=== PATIENT | female | born 1945 | race Caucasian/White ===

== ENCOUNTER 2020-07-31 11:21 | Day surgery (SDC) | payer MEDICARE, SELFPAY ==
[2020-07-31] VITALS (10 sets, daily range): BP systolic 134–159; BP diastolic 45–87; PULSE 76–88; RESP 14–16; TEMP 36.6–37.1; O2SAT 96–100; BMI 29.5
[2020-07-31] MEDS: Lactated Ringers 1,000 ML 75 ML IV (13:10)
--- NOTE | 2020-07-31 14:00 | PCM.DC.ORTHO ---
Discharge Diet: Light diet - advance as tolerated Discharge Activity: May Not Drive, May Not Shower, Use Walker, Use Crutches Weight Bearing Status: No weight bearing Keep extremity elevated above heart level: Left Leg Additional Activity Instructions:: 1. Keep dressing to left leg clean, dry, intact. Do not get dressing wet. Do not remove dressing. If get dressing wet, call office for further instructions. 2. Ice around left knee 30 minutes every hour while awake as needed for pain. 3. Elevate left foot above level of heart as often as possible until further instructed. When elevating, place pillows underneath left calf. Make sure left heel is hanging off so no pressure is placed on left heel. 4. No walking or standing on the left foot. Do not place any weight on left foot. Use walker/crutches/wheelchair/knee scooter for assistance. 5. Continue taking doxycycline (antibiotic) twice a day as instructed. 6. Begin taking aspirin tomorrow, August 01, 2020 as instructed. 7. Begin taking [place] (pain medication) today, July 31, 2020 as needed. You can supplement with extra strength Tylenol (acetaminophen). [place] does contain Tylenol (Acetaminophen) in it. Do not take more than 3000 mg of Tylenol (Acetaminophen) in a 24-hour period. 8. Follow-up with Dr. Cordova in [place] office as previously instructed and scheduled. 9. Call office with any questions, concerns, increase in pain. Call your doctor if your incision/area has: Continuous Slow Oozing, Sudden Increased Bleeding, Increased Pain/ Swelling Call your doctor if you observe: Fever of 101 or Higher, Coldness, Increased Pain, Shortness of breath, Chest pain, Increased palpitations (irregular heartbeat), Calf discomfort, Uncontrolled pain Cleanse incision/area with: Keep Dressing Clean & Dry Allergies/Adverse Reactions: Allergies latex Allergy (Verified 07/30/20 15:32) Swelling Sulfa (Sulfonamide Antibiotics) Allergy (Verified 07/30/20 15:32) PT UNSURE OF REACTION Medications to take at Discharge Acetaminophen [Tylenol] 325 mg PO Q6H PRN PRN 07/30/20 Doxycycline Hyclate 100 mg PO BID 07/30/20 Ibuprofen [Advil] 200 mg PO Q6H 07/30/20 Primary Care Physician: Lois Paul MD [Primary Care Provider] - Test Results: Test results from this visit will be discussed in further detail at your follow-up appointment, if applicable. Please Follow Up With: Eric Cordova DPM When: in 1 week in [place] office as previously scheduled. Proposed Discharge Date: 07/31/20
--- NOTE | 2020-07-31 14:05 | PCM.OPRPT ---
Problem List (1) Dislocation of left ankle joint Status: Acute Qualifiers: Encounter type: initial encounter Qualified Code(s): S93.05XA - Dislocation of left ankle joint, initial encounter (2) Fracture of ankle, trimalleolar, left, closed Status: Acute Qualifiers: Encounter type: initial encounter Qualified Code(s): S82.852A - Displaced trimalleolar fracture of left lower leg, initial encounter for closed fracture Report of Operation Date of Procedure: 07/31/20 Pre-Operative Diagnosis: 1. Left ankle trimalleolar fracture, displaced, closed. 2. A left ankle joint dislocation Post-Operative Diagnosis: Same as preoperative Surgery/Procedure Performed:: 1. Closed reduction of left ankle trimalleolar fracture. 2. Application of external fixator, left foot, ankle, leg Description of Surgical Findings:: Consistent with diagnosis. Reduction of deformity achieved and held with external fixation. Type of Anesthesia:: Spinal/Supplemental - With a popliteal and saphenous block given to the left lower extremity Anesthesiologist: Avtar Kimbrough Special Medications: 2 grams of ancef given pre-operatively Specimen's removed: None Drains: None Description of Procedure: Pathology: None Anesthesia: Spinal with a popliteal and saphenous block of the left lower extremity Hemostasis: Anatomic dissection Estimated blood loss: Materials: 1. [place] Martini delta frame external fixator with associated half pins x5. 2. Size 5 150mm Half pins x 2 3. Size 5 180 mm Half pins x 2 4. Hybrid 4/5 half pin Injectables: None Complications: None Condition: Stable Indications: Patient is a 74-year-old female with no reported past medical history who presented to my office yesterday, July 30, 2020 with chief complaint of pain in her left ankle. After verbal questioning, patient states that the injury to her left ankle occurred on July 26, 2020 while she was at home. Patient was out in her yard and the patient slipped on wet grass. She states that she felt a pop and snap in her left ankle during the incident. She noticed that her foot was turning outwards, and she popped her foot back into place herself. She attempted to weight-bear, but noticed shifting of her left foot again. Patient was then brought to the [facility] emergency department for further evaluation. At that time, x-rays were taken, revealing a left ankle trimalleolar fracture with a left ankle joint dislocation. A closed reduction was performed and patient was placed in a posterior splint. She was instructed to remain nonweightbearing. She then presented to my office yesterday for further evaluation. At that time, x-rays were reviewed with the patient, revealing a left ankle joint dislocation that was reduced when compared to prereduction x-rays along with a left ankle joint trimalleolar fracture, which was reduced when compared to prereduction x-rays. After reviewing the patient's skin, significant fracture blisters were present on the medial and lateral aspects of the left ankle. Significant swelling was noted as well. At that time, I discussed with the patient the nature and severity of her injury. I discussed with her that she does have a left ankle trimalleolar fracture along with dislocation, and I discussed these terms in detail. I discussed with her that there are fracture blisters present. I discussed with her conservative and surgical intervention. Conservative therapy would include serial casting along with a period of nonweightbearing with transitioning to a cam boot. I discussed surgical intervention with the patient. Initial surgical intervention would include a closed reduction of the left ankle joint with application of external fixator frame. The reasoning for this would be the evidence of her fracture blisters that are present. I discussed with the patient that open reduction with internal fixation is not advised until the fracture blisters show evidence of healing. The external fixator would hold her ankle in place until a definitive surgical intervention can be performed. I discussed with her that a second surgery would be necessary to remove the external fixator and perform internal fixation. I discussed what the external fixator looks like and showed her images of this. I discussed the risks and benefits of both conservative and surgical intervention. Risks of surgical intervention include but not limited to delayed or nonhealing wounds, delayed or nonhealing bone, DVT, infection, decreased function of limb, continued pain, damage to surrounding structures, loss of limb, loss of life. All the patient's questions were answered to her satisfaction and all of her concerns were addressed. No guarantees were made as to the outcome of the procedure. Patient understood all aspects of the procedure. Due to the fracture blisters that were present in her ankle joint injury, I recommended initial surgical intervention with closed reduction of the left ankle joint along with application of external fixator. Patient was agreeable to this and consent was then signed by the patient. Surgical intervention was planned for today, July 31, 2020. I discussed with the patient I would recommend that she stay as an inpatient in the hospital to be placed in subacute rehab. Patient was not agreeable to this, stating that she does have enough support at home to help her ambulate. I discussed with her that this could help her with her pain control. Patient is refusing to be admitted as an inpatient, and would like to go home after the surgery. Operative report: before the patient was brought to the operating room, the risks of surgical intervention include but not limited to delayed or nonhealing wounds, delayed or nonhealing bone, DVT, infection, decreased function of limb, continued pain, damage to surrounding structures, loss of limb, loss of life. All the patient questions were answered to her satisfaction and all of her concerns were addressed. No guarantees were made as to the outcome of the procedure. Patient understood all aspects of the procedure. Patient was agreeable to proceed with a left ankle joint closed reduction along with application of external fixator. I discussed with her once again that would recommend that she does stay at least 1 night after the surgery for pain control. I also do recommend subacute rehab placement. Patient is refusing admission and subacute rehab at this time, stating that she has enough support at home and would like to go home after the surgery. Patient was then brought to the operating room and placed on the operating table in supine position. At that time, spinal anesthesia was achieved along with IV sedation. Preoperative antibiotics were given. Anesthesia took control of the airway and IV access. Care was taken make sure that all pressure points were adequately padded. The left lower extremity was then elevated with blankets. A bump was placed on the ipsilateral hip. Next, the left foot, ankle, leg were then scrubbed, prepped, draped in the usual sterile manner. Attention was then directed to the left tibia. At this time, radiographic evaluation was used to determine the level of the tibia and fibula fractures. These were then marked on the patient. Next, the proximal tibia was palpated and marked on the patient. This was proximal to the fracture line. At this time, a stab incision was made at the level of the proximal tibia in the midshaft of the tibial bone. Blunt dissection was continued down deep to the level of the tibia, which was where the periosteum was bluntly dissected off. At this time, the Gayla half pin was placed from anterior to posterior into the tibia. Care was taken make sure this was bicortical. This was confirmed upon radiographic evaluation. Once adequate positioning of this pin was performed, a second pin was placed proximal to this. This was inserted in standard fixation and approximately 2 cm proximal to the first pin. Radiograph evaluation was performed to make sure this pin was bicortical as well. The [place] 10 hole pin clamp was placed, and upon tightening of the pin clamp, bending of the pins was noted. Was determined that the proximal pin would be moved further proximally to adequately aligned and the pin clamp. This half pin was then placed 4 cm proximal to the first pin. A stab incision was made at this level and this was inserted bicortically. Multiple radiographic views placed to make sure this was bicortical. The 10 hole clamp was placed on the 2 pins, and no bending of the pins was noted. The clamp was then removed. The skin for the site where the half pin was removed was reapproximated coapted utilizing size 3-0 nylon in a horizontal mattress fashion. Once adequate positioning of the pin was performed, attention was then directed to the medial aspect of the left calcaneus. Radiograph evaluation was performed to determine the level of where the medial calcaneal pin would be inserted. Once this was determined, a stab incision was made at the medial calcaneus. Blunt dissection was continued down deep to the level of calcaneus, where the periosteum was bluntly dissected off. Next, the half pin was placed from medial to lateral in the calcaneus with care taken make sure this was bicortical. This was confirmed on radiographic evaluation. Next, attention was then directed to the lateral aspect of the left calcaneus. Radiograph evaluation was used to determine where this half pin would be placed. Care was taken make sure that this pin was not going to interfere with the medial calcaneal pain. Once adequate positioning was had, stab incision was made at this level were blunt dissection was continued down deep to the level of the calcaneus. The periosteum was bluntly dissected off. At this time, the half pin was placed from lateral to medial with care taken to make sure that this was bicortical. Multiple radiographic views were performed to make sure that adequate positioning of these pins was had. These were bicortical as well. Attention then directed to the dorsomedial aspect of the right foot in the area of the medial cuneiform. Radiograph evaluation was performed to determine the level of where the medial cuneiform pin will be placed. Once this was determined, a stab incision was made at the level of the medial aspect of the medial cuneiform. The cuneiform half pin was inserted from medial to lateral into the intermediate and lateral cuneiforms. Once adequate positioning was had, radiograph evaluation was then performed. Adequate positioning was obtained of this medial cuneiform pin. Next, radiograph evaluation was performed on the tibial pins, calcaneal pins, medial cuneiform pin once again. These were all in adequate position and all were contained in multiple cortices. Next, the 10 hole pin clamp was placed on top of the 2 tibial pins. At this time, rods were placed with the couplings to the lateral portion of the tibia to the lateral calcaneus, medial portion of the tibia to the medial calcaneus, and lateral alexx to the medial cuneiform pin. The proximal pins, couplings, and rods were then tightened. At this time, live radiograph evaluation was used to perform the closed reduction. Once adequate positioning was obtained of the trimalleolar ankle fracture and the talus was underneath the tibia, all pins, rods, couplings were tightened. Once all were tightened, radiographic evaluation was performed. The tibia and fibula were noted to be reduced from preoperative assessment. The ankle joint mortise was noted to be intact. The tibia and fibula were noted to be out the length. Reduction was had from preoperative assessment. Care was taken to make sure that all pins were tightened. Each pin site was then dressed with Xeroform and the fracture blister sites along with the evacuated pin hole site were dressed with betadine soaked gauze. The left foot/ankle/leg were then dressed with a dry sterile dressing consisting of 4 x 4 gauze, and Kerlix. The left foot, ankle, leg were then wrapped with an Fuentes bandage. Neurovascular status was assessed at the end of application and deemed intact to the left lower extremity. The patient tolerated the anesthesia the procedure well and was transported to the PACU with vital signs stable and neurovascular status intact to the left lower extremity. After period of postoperative monitoring, patient will be discharged home with written and oral instructions for wound care and follow up. - Complications None - Admit VTE Documentation VTE Present on Admission: No - Postoperative DVT prophylaxis given with aspirin 325 mg p.o. once a day VTE Mechan Device Prophylaxis: SCD's VTE Pharm Prophylaxis ordered?: Yes
[2020-07-31] MEDS: Cefazolin 2 GM in 0.9% Normal Saline 100 ML IV (14:42)
--- NOTE | 2020-07-31 14:45 | RAD_ITS ---
STUDY: X-RAY - LEFT ANKLE REASON FOR EXAM: Female, 74 years old. ] Reduction of a trimalleolar fracture with external fixator. TECHNIQUE: Fluoroscopic guidance was provided in the operating room during the external fixation of the trimalleolar ankle fracture. Surgery images of the ankle were performed. COMPARISON: None. FINDINGS: Endoscopic guidance was provided the OR. The report is for documentation purposes. There is no radiologic evaluation of the images. 289.1 seconds of fluoroscopy were utilized. The dosage is 7.07 mCGy. Please refer to the operative report for further details. RAD/Ankle min 3 Views IMPRESSION: Fluoroscopic guidance provided in the OR during the external fixation of an ankle fracture. Electronically Signed: Rupert Carcamo DO at 20:20 EDT Tel [phone], Service support ,
--- NOTE | 2020-07-31 16:25 | RAD_ITS ---
STUDY: X-RAY - LEFT TIBIA AND FIBULA REASON FOR EXAM: Female, 74 years old. Postop, status post closed reduction of an ankle fracture with external fixation. TECHNIQUE: AP and lateral view(s) of the tibia and fibula were obtained. COMPARISON: Ankle, 07/31/2020. FINDINGS: There are 2 metal pins extending through the mid tibial shaft. External fixator is seen about the lower ankle and foot. There are minimally displaced fractures of the posterior malleolus. There is a fracture of the distal fibula. There is a nondisplaced fracture of the medial malleolus. The ankle and knee appear intact. The soft tissue structures are unremarkable. RAD/Tibia & Fibula 2 Views IMPRESSION: Post external fixation of a left trimalleolar ankle fracture. Electronically Signed: Rupert Carcamo DO at 20:45 EDT Tel [phone], Service support ,
--- NOTE | 2020-07-31 16:25 | RAD_ITS ---
STUDY: X-RAY - LEFT FOOT CLINICAL: Female, 74 years old. Postop, status post closed reduction of an ankle fracture with external fixation. TECHNIQUE: 3 view(s) of the foot. COMPARISON: Left ankle, 07/31/2020 FINDINGS: Visualization the osseous structures for limited due to overlying external fixator. There are 2 pins transfixing the calcaneus and another pin extending through the cuneiforms. There is no obvious osseous fracture. An seen is a fracture of the ankle. Normal talus, calcaneus, and tarsal bones. Normal visualized subtalar, talonavicular, calcaneocuboid, tarsal and tarsometatarsal articulations. Normal metatarsi. Normal metatarsophalangeal joint of the great toe. Normal tibial and fibular sesamoid bones. Normal interphalangeal joint of the great toe. Normal phalanges of the great toe. Normal second through fifth metatarsophalangeal joints. Normal interphalangeal joints and phalanges of the lesser toes. The soft tissue structures are unremarkable. RAD/Foot min 3 Views IMPRESSION: Status post external fixation of an ankle fracture. There is no obvious fracture or dislocation of left foot. Electronically Signed: Rupert Carcamo DO at 20:44 EDT Tel [phone], Service support ,
--- NOTE | 2020-07-31 16:45 | RAD_ITS ---
STUDY: X-RAY - LEFT ANKLE REASON FOR EXAM: Female, 74 years old. Postop, status post closed reduction of left ankle fracture with external fixation. TECHNIQUE: 3 view(s) of the ankle. COMPARISON: None. FINDINGS: Is a minimally displaced posterior malleolar fracture. Mildly displaced fracture of the distal fibular metaphysis. The medial malleolus appears unremarkable. Normal tibiotalar articulation and ankle mortise. Normal visualized talus and calcaneus. The visualized subtalar, talonavicular, calcaneocuboid and tarsal articulations are normal. There is evidence of an external fixator with multiple rods extending into the calcaneus. RAD/Ankle min 3 Views IMPRESSION: External fixation of left ankle fracture. Fracture fragments are in grossly normal alignment. Electronically Signed: Rupert Carcamo DO at 20:32 EDT Tel [phone], Service support ,
== END 2020-07-31 19:00 | disposition home or self-care (01) ==
LOC: SDC 11:28 → AC 11:30
PROVIDERS: PCP Internal Medicine; Referring Provider Podiatrist Foot & Ankle Surgery; Visit Provider Podiatrist Foot & Ankle Surgery
DX: S82.852A Displaced trimalleolar fracture of left lower leg, initial encounter for closed fracture (principal); E66.3 Overweight; Z68.29 Body mass index [BMI] 29.0-29.9, adult; S93.05XA Dislocation of left ankle joint, initial encounter; W01.0XXA Fall on same level from slipping, tripping and stumbling without subsequent striking against object, initial encounter; Y93.89 Activity, other specified; Y92.007 Garden or yard of unspecified non-institutional (private) residence as the place of occurrence of the external cause; Y99.9 Unspecified external cause status
CPT/HCPCS: 01462; 20694; 27822; 73590; 73610; 73630; 76000; 87426; C1713; J7120; J2405

== ENCOUNTER 2020-08-22 05:42 | Day surgery (SDC) | payer MEDICARE, SELFPAY ==
[2020-07-31 13:02] VITALS: BMI 29.5
[2020-08-22 06:25] VITALS: BP 135/69; PULSE 69; RESP 18; TEMP 37.1; O2SAT 98; BMI 29.0
[2020-08-22] MEDS: Lactated Ringers 1,000 ML 100 ML IV (06:35)
[2020-08-22] MEDS: Cefazolin 2 GM in 0.9% Normal Saline 100 ML IV (07:26)
--- NOTE | 2020-08-22 07:45 | RAD_ITS ---
STUDY: X-RAY - LEFT ANKLE REASON FOR EXAM: Female, 74 years old. Removed external fixation, ORIF trimalleolar fx TECHNIQUE: 3 view(s) of the ankle. COMPARISON: None. FINDINGS: Intraoperative imaging provided for removal of the external fixator device and ORIF of the distal fibula and medial malleolus. There is good alignment. RAD/Ankle min 3 Views IMPRESSION: Intraoperative imaging provided for removal of the external fixator device and ORIF of the distal fibula and medial malleolar fractures. Electronically Signed: Bryan Fernandez, at 12:57 EST , Service support ,
[2020-08-22] MEDS: Bupivacaine Mpf 0.5% 30 ML VIAL (08:00)
--- NOTE | 2020-08-22 09:58 | RAD_ITS ---
STUDY: X-RAY - LEFT ANKLE REASON FOR EXAM: Female, 74 years old. S/P REMOVAL OF EXTERNAL FIXATOR AND ORIF TECHNIQUE: 3 view(s) of the ankle. COMPARISON: Comparison is made with prior study dated 07/31/2020. FINDINGS: The patient is status post external fixator removal with ORIF of the distal fibula and screw fixation of the medial malleolus. There is good alignment.. Postoperative soft tissue changes. The soft tissue structures are unremarkable. RAD/Ankle min 3 Views IMPRESSION: Status post removal of the external fixator device and ORIF of the distal fibula and screw fixation of the medial malleolus. Postoperative soft tissue changes. Electronically Signed: Bryan Fernandez, at 12:46 EST , Service support ,
--- NOTE | 2020-08-22 09:58 | RAD_ITS ---
STUDY: X-RAY - LEFT FOOT CLINICAL: Female, 74 years old. S/P REMOVAL OF EXTERNAL FIXATOR AND ORIF TECHNIQUE: 3 view(s) of the foot. COMPARISON: 07/31/2020 FINDINGS: Normal talus, calcaneus, and tarsal bones. Normal visualized subtalar, talonavicular, calcaneocuboid, tarsal and tarsometatarsal articulations. Normal metatarsi. Normal metatarsophalangeal joint of the great toe. Normal tibial and fibular sesamoid bones. Normal interphalangeal joint of the great toe. Normal phalanges of the great toe. Normal second through fifth metatarsophalangeal joints. Normal interphalangeal joints and phalanges of the lesser toes. The soft tissue structures are unremarkable. RAD/Foot min 3 Views IMPRESSION: Normal x-ray examination of the foot. Electronically Signed: Dorian Molina MD at 17:07 EST Tel , Service support ,
--- NOTE | 2020-08-22 10:02 | DCINST_ITS ---
Discharge Diet: Light diet - advance as tolerated Discharge Activity: May Not Drive, May Not Shower, Use Walker, Use Crutches Weight Bearing Status: No weight bearing Keep extremity elevated above heart level: Left Leg Additional Activity Instructions:: 1. Keep dressing to left leg clean, dry, intact. Do not remove dressing. Do not get dressing wet. If get dressing wet, call office for further instruction. 2. Ice around left knee 30 minutes every hour as needed for pain. 3. Elevate left foot above level of heart as often as possible until further instructed. 4. Do not place any weight on left foot. No walking/standing on left foot. Use crutches/walker/wheelchair/knee scooter for assistance. 5. Begin taking doxycycline (antibiotic) tomorrow, August 23, 2020 twice a day as instructed. 6. Begin taking aspirin tomorrow, August 23, 2020 as previously instructed. 7. Begin taking Percocet today, August 22, 2020 as needed. You may supplement with Tylenol. Percocet does have Tylenol in it. Do not take more than 3000 mg of Tylenol in a 24-hour period. 8. Follow-up with Dr. Cordova as previously scheduled on September 02. Call office with any questions, concerns. Call your doctor if your incision/area has: Continuous Slow Oozing, Sudden Increased Bleeding, Increased Pain/ Swelling Call your doctor if you observe: Fever of 101 or Higher, Coldness, Increased Pain, Inability to have a bowel movement, Shortness of breath, Chest pain, Increased palpitations (irregular heartbeat), Calf discomfort, Uncontrolled pain Cleanse incision/area with: Keep Dressing Clean & Dry Allergies/Adverse Reactions: Allergies latex Allergy (Verified 08/22/20 06:22) Swelling Sulfa (Sulfonamide Antibiotics) Allergy (Verified 08/22/20 06:22) PT UNSURE OF REACTION Medications to take at Discharge Acetaminophen [Tylenol] 325 mg PO Q6H PRN PRN 07/30/20 Doxycycline Hyclate 100 mg PO BID 07/30/20 Ibuprofen [Advil] 200 mg PO Q6H 07/30/20 Aspirin 325 mg PO DAILY@0800 08/16/20 Primary Care Physician: Lois Paul MD [Primary Care Provider] - Test Results: Test results from this visit will be discussed in further detail at your follow- up appointment, if applicable. Please Follow Up With: Eric Cordova DPM When: on 09/02/2020 in [place] Office Proposed Discharge Date: 08/22/20
--- NOTE | 2020-08-22 10:05 | PCM.OPRPT ---
Problem List (1) Dislocation of left ankle joint Status: Acute Qualifiers: Encounter type: subsequent encounter Qualified Code(s): S93.05XD - Dislocation of left ankle joint, subsequent encounter (2) Fracture of ankle, trimalleolar, left, closed Status: Acute Qualifiers: Encounter type: subsequent encounter Fracture healing: with routine healing Qualified Code(s): S82.852D - Displaced trimalleolar fracture of left lower leg, subsequent encounter for closed fracture with routine healing Report of Operation Date of Procedure: 08/22/20 Pre-Operative Diagnosis: 1. Left ankle trimalleolar fracture. 2. Left ankle joint dislocation. 3. Blister of left lower extremity, nonthermal Post-Operative Diagnosis: Same as preoperative Surgery/Procedure Performed:: 1. Open reduction with internal fixation, left ankle trimalleolar fracture. 2. Removal of external fixator, left lower extremity resaw carriage operator: Sona Espinoza NP Type of Anesthesia:: General/Regional - With a popliteal nerve block given to the left lower extremity preoperatively and a saphenous nerve block given intraoperatively. Anesthesiologist: Avtar Kimbrough Special Medications: 2 g of Ancef given preoperatively Specimen's removed: None Drains: None Estimated Blood Loss (mL): 10 Description of Procedure: Hemostasis: Pneumatic thigh tourniquet placed at the level of the left thigh at 275 mmHg for 100 minutes Estimated blood loss is 10 mL Materials: #1. Durham 4-hole distal lateral fibula plate. 2. Durham 4.0 x 50 mm Asnis screw. 3. Gayla 3.5 x 14 mm locking screw x4. 4. Gayla 3.5 x 16 mm locking screw. 5. Gayla 3.5 x 18 mm locking screw. 6. Durham 3.5 x 14 mm nonlocking screw. 7. Size 0 Vicryl. 8. Size 2-0 Vicryl. 9. Size 3-0 Vicryl. 10. Size 3-0 nylon Injectables: 5 mL of 0.5% Marcaine plain distributed a proximal saphenous nerve block fashion Complications: Difficulty in reducing fracture due to the nature of her soft bone Condition: Stable Indications: Patient is a 74-year-old female who suffered a left ankle fracture on July 26, 2020 while at home. A closed reduction was performed in the emergency department. Patient initially saw me on July 30, 2020. At that time, significant fracture blisters were noted. Due to the nature of her soft tissue at that time, it was determined that the ankle fracture would be reduced and held in place with an external fixator. The surgical intervention was performed on July 31, 2020. Patient has been subsequently seeing me in the office for further postoperative care. A significant reduction in edema was noted along with healing of the fracture blisters. It was then determined that the removal of the external fixator would be performed along with a definitive open reduction with internal fixation today, August 22, 2020. I discussed the risks and benefits of surgical intervention, including but not limited to delayed or nonhealing wounds, delayed or nonhealing bone, DVT, infection, decreased function of limb, continued pain, damage to surrounding structures, loss of limb, loss of life. All the patient's questions were answered to her satisfaction and all of her concerns were addressed. No guarantees were made as to the outcome of the procedure. Patient understood all aspects of the procedure, consent was signed by the patient, and patient was agreeable to proceed with surgical intervention. Operative report: Before the patient was brought into the operating room, the risks, benefits, possible outcomes, possible complications of the procedure were discussed with the patient once again. All the patient's questions were answered to her satisfaction and all of her concerns were addressed. No guarantees were made as to the outcome of the procedure. Patient understood all aspects of the procedure, and was agreeable to proceed with the surgical intervention. Before the patient was brought to the operating room, the anesthesiologist administered a popliteal block to the left lower extremity. Patient was then brought to the operating room and placed on the operating table in the supine position. After a timeout, once general anesthesia was obtained, adequate padding was placed in all pressure points. Anesthesia took control of the airway and the IV access. Next, a well-padded pneumatic thigh tourniquet was placed the level of the left thigh. At this time, the external fixator along with the associated half pins were removed in their entirety. Next, the left foot, ankle, leg were then scrubbed, prepped, draped in the usual sterile manner. Attention was then directed to the external fixator pin sites, 2 on the midshaft of the tibia, one on the medial foot, one on the medial calcaneus, and one on the lateral calcaneus. These were then debrided utilizing a curette to remove any fibrous tissue and nonviable tissue. Each half pin site was then irrigated with copious amounts of normal sterile saline. The subcutaneous tissues of each half pin site were reapproximated and coapted utilizing size 2-0 Vicryl. The skin of each half pin site was reapproximated and coapted utilizing size 3-0 nylon in a simple interrupted and horizontal mattress fashion. At this time, the left foot, ankle, leg were then rescrubbed, reprepped, and redraped. This occurred in the usual standard fashion. At this time, radiograph evaluation was used to determine the distal aspect of the lateral malleolus, level of the fibular fracture, lateral aspect of the distal one third of the fibular shaft. These were then marked on the patient. Next, the ankle joint line was then marked on the patient as well. Furthermore, the medial malleolus and the medial malleolus fracture were marked on the patient as well. Next, the left foot, ankle, leg were then elevated and exsanguinated via Esmarch and inflation of pneumatic thigh tourniquet was performed to 275 mmHg. Attention was then directed to the lateral aspect of the left ankle. At this time, #15 blade was used to perform a linear longitudinal incision starting at the distal aspect of the distal tip of the lateral malleolus extending proximally to the lateral aspect of the distal one third of the fibular shaft. This incision was approximately 8 cm in length. The incision was deepened utilizing sharp and blunt dissection. Care was taken to retract all vital neural and vascular structures. All bleeders were cauterized and ligated as necessary. At this time, a linear periosteal incision was made in line with the original skin incision. The periosteal and capsular structures were then reflected anteriorly and posteriorly, thus exposing the fibula and the fracture at the operative site. At this time, a curette along with a rongeur was used to remove any fibrous tissue contained within the fracture site. The surgical site was then irrigated with copious amounts of normal sterile saline. At this time, multiple attempts were made to reduce the fibular fracture. It was noted that her bone was very soft. Once adequate reduction was had, radiograph evaluation was then performed. The fibula was noted to be out to length at this time. The lateral ankle joint mortise was noted to be intact. There was a minimal posterior spike on the fibula. At this time, multiple attempts were made to place an interfragmentary screw. This was difficult due to the nature of her bone. It was determined at this time that the fibular fracture will be held in place utilizing a plate only. At this time, the Durham 4-hole lateral fibula plate was placed over the lateral aspect of the fibula and held via temporary fixation. Once adequate positioning of the plate was had and confirmed upon radiographic evaluation, this was held to the lateral aspect of the fibula utilizing locking screws. Of note during insertions of the screws was the adequate compression of the plate to the bone. Furthermore, no shifting of the bone occurred during insertion of the screws. Once her screws were fully inserted, all temporary fixation was then removed. Radiograph evaluation was then performed. The fibula plate was noted to hold the fibula in the reduced position. At this time, live radiographic evaluation was used to perform the hook and cotton test. No evidence of syndesmosis instability was noted. No widening noted at the distal tibiofibular joint. It was determined that the syndesmosis was stable at this time. Attention was then directed to the medial aspect of the medial malleolus and the fracture of the left ankle. At this time, the medial malleolar fracture was reduced and held via percutaneous wire. Multiple radiographic use were performed to make sure this wire was well contained within the medial malleolus. Once adequate positioning of this wire was had, it was then drilled, and a size 4-0x50 mm Asnis screw was placed over the wire and inserted. Of note during insertion of the screw was the adequate compression of the medial malleolus fracture. Furthermore, no shifting any of the fracture occurred during insertion of the screw. Once the screw was fully inserted, the temporary fixation was then removed. Adequate reduction was had with this 1 screw. Furthermore, due to the size of the medial malleolus fracture, it was determined that 1 screw would only be needed. Radiograph evaluation was then performed once again. The posterior malleolus fracture was noted to be reduced when compared to preoperative assessment. It was noted to be less than 25% of the articulating surface of the ankle joint, and reduced back into anatomical position. Due to this, it was determined that this would not need fixation. Radiograph evaluation was then performed once again. The fibula was noted to be out to length at this time and reduced when compared to preoperative assessment. It was held in this reduced position via the internal fixation. The medial malleolus fracture was noted to be reduced when compared to preoperative assessment. The cotton and hook test were performed once again, confirming the syndesmosis was intact. Each surgical site was irrigated with copious amounts of normal sterile saline. The pneumatic thigh tourniquet was then released and a prompt hyperemic response was noted to the entirety of the left lower extremity. For the lateral surgical site, the periosteal and capsular structures were reapproximated and coapted utilizing size 0 Vicryl and 2-0 Vicryl. The subcutaneous tissues were reapproximated and coapted utilizing size 2-0 Vicryl and 3-0 Vicryl. The skin was reapproximated coapted utilizing size 3-0 nylon in a simple interrupted horizontal mattress fashion. The medial surgical site subcutaneous tissues were reapproximated coapted utilizing size 2-0 Vicryl. The skin was reapproximated coapted utilizing size 3-0 nylon in a simple interrupted horizontal mattress fashion. Each surgical site for the external fixator removal and the open reduction with internal fixation was dressed with Betadine soaked gauze, and a dry sterile dressing consisting of 4 x 4 gauze, ABD pads, wrapped with Kerlix. The left foot and ankle were then wrapped with an Fuentes bandage. Next, a stockinette was placed over the left lower extremity. Cast padding was wrapped from the metatarsal heads extending proximally to a level just distal to the tibial tuberosity. A posterior splint was fashioned to the left lower extremity and was adhered to the left lower extremity utilizing Fuentes bandages. Neurovascular status was assessed at the end the application and deemed intact to left lower extremity. The patient tolerated the anesthesia and the procedure well and was transported to the PACU with vital signs stable and neurovascular status intact to the left lower extremity. After period of postoperative monitoring, patient will be discharged home with written and oral instructions for wound care and follow-up. The medical surgical tech, the nurse practitioner, was utilized that the entire procedure. She helped with patient positioning, holding of limb, holding retractors. She helped with exposure throughout. She helped with bandage application, and cast application. Without the medical surgical tech, surgical time would have been increased and surgical outcome could have been less optimal. - Complications Due to her soft nature of her bone, it was difficult to reduce the fractures. An interfragmentary screw would not hold in the fibula due to the soft bone. This was fixated utilizing a plate. - Admit VTE Documentation VTE Present on Admission: No - Aspirin 325 mg once a day by mouth given postoperatively for DVT prophylaxi VTE Mechan Device Prophylaxis: SCD's VTE Pharm Prophylaxis ordered?: Yes
[2020-08-22 10:49] VITALS: BP 119/71; BP 135/69; PULSE 70; RESP 14; TEMP 36.3; O2SAT 98
[2020-08-22 11:00] VITALS: BP 126/71; BP 135/69; PULSE 72; RESP 16; O2SAT 98
[2020-08-22 11:15] VITALS: BP 135/69; BP 136/68; PULSE 77; RESP 16; TEMP 36.2; O2SAT 95
[2020-08-22] MEDS: HYDROcodone Bitartrate/Apap 5/325 Tablet PO (11:49)
[2020-08-22 13:08] VITALS: BP 130/73; BP 135/69; PULSE 74; RESP 16; TEMP 36.3; O2SAT 99
== END 2020-08-22 13:10 | disposition home or self-care (01) ==
LOC: SDC 05:42 → AC 05:42
PROVIDERS: PCP Internal Medicine; Referring Provider Podiatrist Foot & Ankle Surgery; Visit Provider Podiatrist Foot & Ankle Surgery
PROC: (CPT 20694; principal; 2020-08-22 07:10)
DX: S93.05XD Dislocation of left ankle joint, subsequent encounter (principal); S82.852D Displaced trimalleolar fracture of left lower leg, subsequent encounter for closed fracture with routine healing; X58.XXXD Exposure to other specified factors, subsequent encounter
CPT/HCPCS: 20694; 27822; 73610; 73630; 76000; 87426; C1713; C9803; J7120; J2405